=== PATIENT | female | born 1945 | race Native Hawaiian/Other Pacific Islander ===

== ENCOUNTER 2018-11-04 19:05 | Emergency (ER) | payer OTHER ==
[~2018-11-04] VITALS: Ht 157.5 cm; Wt 47.6 kg
[2018-11-04 19:05] VITALS: BP 103/63; TEMP 98.1
[2018-11-04] MEDS ORDERED: BUPROPION HYDR150 M1 PEG (23:36)
[2018-11-04] MEDS ORDERED: CLON0.1T16 PEG (23:36)
[2018-11-04] MEDS ORDERED: DIVA250T PEG (23:37)
[2018-11-04] MEDS ORDERED: DIGOX250 MCG PEG (23:37)
[2018-11-04] MEDS ORDERED: NEURONTIN 100M100 MG PEG (23:38)
[2018-11-04] MEDS ORDERED: PHENELX32 PEG (23:39)
[2018-11-04] MEDS ORDERED: LINZESS145 MCG PEG (23:40)
[2018-11-04] MEDS ORDERED: HEMOCYTE1 TAB PEG (23:40)
[2018-11-04] MEDS ORDERED: MELATONIN5 MG PEG (23:41)
[2018-11-04] MEDS ORDERED: MEGESTROL AC20 MG PEG (23:41)
[2018-11-04] MEDS ORDERED: METOPROLOL SUCC1 TAB PEG (23:42)
[2018-11-04] MEDS ORDERED: MIRALAX3350 N1 PEG (23:43)
[2018-11-04] MEDS ORDERED: MULTIVITAMIN WO1 TA1 PEG (23:44)
[2018-11-04] MEDS ORDERED: OXYB5TAB56 PEG (23:44)
[2018-11-04] MEDS ORDERED: PEPCID40 MG PEG (23:45)
[2018-11-04] MEDS ORDERED: PANTOPRAZOLE 40MG TA PEG (23:45)
[2018-11-04] MEDS ORDERED: METO5SYP21 PEG (23:46)
[2018-11-04] MEDS ORDERED: SIME80CH32 PEG (23:47)
[2018-11-04] MEDS ORDERED: SOD CHLORIDE1 GM PEG (23:48)
[2018-11-04] MEDS ORDERED: TYLENOL325 MG PEG (23:48)
[2018-11-04] MEDS ORDERED: TRAM50TA PEG (23:49)
[2018-11-04] MEDS ORDERED: ALPR0.5T24 PEG (23:49)
[2018-11-04] MEDS ORDERED: ZANAFLEX2 MG PEG (23:50)
[2018-11-04] MEDS ORDERED: XARELTO15 MG PEG (23:50)
[2018-11-04] MEDS ORDERED: OLAN2.5T2 PEG (23:51)
[2018-11-04] MEDS ORDERED: ONDA4TAB3 PEG (23:51)
== END 2018-11-04 20:51 | disposition other institution (70) ==
LOC: ED 19:36
DX: R45.851 Suicidal ideations (principal); N39.0 Urinary tract infection, site not specified; I48.91 Unspecified atrial fibrillation; I10 Essential (primary) hypertension
CPT/HCPCS: 99285